=== PATIENT | female | born 1970 | race Caucasian/White ===

== ENCOUNTER 2019-12-06 09:09 | Inpatient (IN) | payer OTHER ==
[~2019-12-06] VITALS: Ht 165.1 cm; Wt 72.6 kg
[2019-12-06] MEDS ORDERED: EFEXOR (09:21)
--- NOTE | 2019-12-06 09:24 | NUR ---
PTE REFIERE DOLOR ABDOMINAL DESDE PEDRO EN LA TARDE Y NAUSEAS. LA MISMA LLEGA EN AMBULANCIA, EN COMPANIA DE FAMILIAR. SE UBICA EN AREA DE OBSERVACION.
--- NOTE | 2019-12-06 09:45 | NUR ---
PTE EVALUADA POR EL DR CAMARA QUIEN [place]. MS Y BIRRIEL ORIENTA SOBRE EL MISMO, LO CUAL REFIERE ENTENDER Y REALIZA PRUEBAS DE LABORATORIO NAOMI ORDEN MEDICA Y SIGUIENDO MEDIDAS ASEPTICAS. MEDICAMENTOS ADMINISTRADOS. SE NOTIFICA SONOGRAMA A PERSONAL DE TURNO.
--- NOTE | 2019-12-06 15:17 | NUR ---
PACIENTE ALERTA Y ORIENTADA EN LISHA SANDIE ESFERAS, PRESENTA BUEN PATRON RESPIRATORIO Y NAKUL DE DOLOR. CANALIZADA EN BRAZO RT, PATENTE Y NAKUL DE S/S DE FLEBITIS E INFILTRACION, RECIBIENDO 0.9%NSS A 120ML/HR. PENDIENTE RADIOGRAFIA, PENDIENTE EKG NOTIFICA A MR C COLON GUEST SERVICES AMBASSADOR, DRA DUKES SE ENCUENTRA EVALUANDO A PACIENTE.
[2019-12-07] MEDS ORDERED: VENLAFAXINE HC150 MG PO (08:24)
[2019-12-07] MEDS ORDERED: REXULTI0.5 MG PO (08:25)
[2019-12-07] MEDS ORDERED: MYDAYIS ER 50 M50 MG PO (08:25)
[2019-12-07] MEDS ORDERED: LORAZEPAM0.5 MG PO (08:26)
[2019-12-07] MEDS ORDERED: VYVANSE50 MG PO (08:26)
[2019-12-07] MEDS ORDERED: VALSARTAN-HCTZ1 EAC4 PO (08:26)
[2019-12-10] MEDS ORDERED: VALSARTAN-HCTZ1 EAC4 PO (11:55)
[2019-12-10] MEDS ORDERED: AUGMENTIN PO (11:57)
== END 2019-12-10 12:18 | disposition home or self-care (01) | DRG 440 ==
LOC: ER 09:09 → SURH 16:32
PROVIDERS: ADMIT Internal Medicine
PROC: 0FJB8ZZ Inspection of Hepatobiliary Duct, Via Natural or Artificial Opening Endoscopic (ICD-10-PCS; principal; 2019-12-06)
PROC: BW40ZZZ Ultrasonography of Abdomen (ICD-10-PCS; 2019-12-06)
DX: K85.10 Biliary acute pancreatitis without necrosis or infection (principal); K80.80 Other cholelithiasis without obstruction; R31.0 Gross hematuria; I10 Essential (primary) hypertension; F41.1 Generalized anxiety disorder; F41.8 Other specified anxiety disorders; K76.0 Fatty (change of) liver, not elsewhere classified